=== PATIENT | male | born 1960 | race African-American/Black ===

== ENCOUNTER 2016-09-06 06:53 | Emergency (ER) | payer OTHER ==
[2016-09-06] MEDS ORDERED: SODIUM CHLORIDE 0.9% 1,000 ML IV STA (07:41)
[2016-09-06] MEDS ORDERED: KETOROLAC 30 MG/ML 1 ML VIAL IVP STA (07:41)
--- NOTE | 2016-09-06 07:43 | ED ---
General Adult HPI - General Chief complaint: Abdominal Pain Stated complaint: Abd Pain Time Seen by Provider: 09/06/16 07:32 Source: patient, RN notes reviewed Mode of arrival: ambulatory Limitations: no limitations - History of Present Illness Initial comments: Patient is a pleasant 55-year-old male presenting to the emergency department complaining of right flank pain. Onset of symptoms was yesterday morning. Fairly sudden onset. Discomfort is positional. Discomfort is below the right CVA region. No dysuria or hematuria. No fever. No nausea or vomiting. No history of similar symptoms previously. - Related Data Home Medications Medication Instructions Recorded Confirmed Acetaminophen Tab [Tylenol Tab] 1,000 mg PO Q6HR PRN 09/06/16 09/06/16 Multivitamins, Thera [Multivitamin 1 tab PO DAILY 09/06/16 09/06/16 (formulary)] Omeprazole Magnesium [Prilosec Otc] 20 mg PO DAILY 09/06/16 09/06/16 Previous Rx's Medication Instructions Recorded Hydrocodone/Acetaminophen [[place] 2 each PO Q6HR PRN #20 tab 09/06/16 5-325] Allergies Allergy/AdvReac Type Severity Reaction Status Date / Time No Known Allergies Allergy Verified 09/06/16 08:01 Review of Systems ROS Statement: Those systems with pertinent positive or pertinent negative responses have been documented in the HPI. ROS Other: All systems not noted in ROS Statement are negative. Constitutional: Denies: fever Eyes: Denies: eye pain ENT: Denies: ear pain Respiratory: Denies: dyspnea Cardiovascular: Denies: chest pain Endocrine: Denies: fatigue Gastrointestinal: Denies: abdominal pain Genitourinary: Denies: urgency, dysuria, frequency, hematuria, discharge Musculoskeletal: Denies: arthralgia Skin: Denies: rash Neurological: Denies: headache Past Medical History Past Medical History: GERD/Reflux History of Any Multi-Drug Resistant Organisms: None Reported Past Surgical History: Hernia Repair, Orthopedic Surgery Additional Past Surgical History / Comment(s): right knee Past Anesthesia/Blood Transfusion Reactions: No Reported Reaction Past Psychological History: No Psychological Hx Reported Smoking Status: Never smoker Past Alcohol Use History: None Reported Past Drug Use History: None Reported - Past Family History Mother Family Medical History: Cancer General Exam Limitations: no limitations General appearance: alert, in no apparent distress Head exam: Present: atraumatic Eye exam: Present: normal appearance ENT exam: Present: normal oropharynx Neck exam: Present: normal inspection Respiratory exam: Present: normal lung sounds bilaterally Cardiovascular Exam: Present: regular rate, normal rhythm Expanded Peripheral pulses: 2+: Dorsalis Pedis (R), Dorsalis Pedis (L) GI/Abdominal exam: Present: soft. Absent: distended, tenderness, guarding, rebound, rigid Extremities exam: Present: normal inspection. Absent: pedal edema, calf tenderness Back exam: Present: tenderness (Mild tenderness below the right CVA region) Neurological exam: Present: alert Psychiatric exam: Present: normal affect, normal mood Skin exam: Present: normal color Course Vital Signs 09/06/16 09/06/16 06:58 09:48 Temperature 98.2 F 97.9 F Pulse Rate 79 53 L Respiratory 16 18 Rate Blood Pressure 139/90 121/73 O2 Sat by Pulse 100 99 Oximetry Medical Decision Making - Medical Decision Making Patient reexamined and resting comfortably in bed. Patient states some improvement with Toradol however is receptive to further medication. Patient agrees not to drive. Patient is updated on results and need for follow-up. - Lab Data Result diagrams: 09/06/16 08:12 09/06/16 08:12 Lab Results 09/06/16 09/06/16 09/06/16 Range/Units 08:12 08:12 08:12 WBC 7.6 (3.8-10.6) k/uL RBC 5.06 (4.30-5.90) m/uL Hgb 14.5 (13.0-17.5) gm/dL Hct 45.5 (39.0-53.0) % MCV 89.9 (80.0-100.0) fL MCH 28.7 (25.0-35.0) pg MCHC 31.9 (31.0-37.0) g/dL RDW 14.0 (11.5-15.5) % Plt Count 196 (150-450) k/uL Neutrophils % 44 % Lymphocytes % 45 % Monocytes % 5 % Eosinophils % 4 % Basophils % 0 % Neutrophils # 3.4 (1.3-7.7) k/uL Lymphocytes # 3.5 (1.0-4.8) k/uL Monocytes # 0.3 (0-1.0) k/uL Eosinophils # 0.3 (0-0.7) k/uL Basophils # 0.0 (0-0.2) k/uL PT 10.1 (9.0-12.0) sec INR 1.0 (<1.1) APTT 26.8 (22.0-30.0) sec Sodium 143 (137-145) mmol/L Potassium 4.3 (3.5-5.1) mmol/L Chloride 109 H (98-107) mmol/L Carbon Dioxide 23 (22-30) mmol/L Anion Gap 11 mmol/L BUN 11 (9-20) mg/dL Creatinine 1.04 (0.66-1.25) mg/dL Est GFR (MDRD) Af Amer >60 (>60 ml/min/1.73 sqM) Est GFR (MDRD) Non-Af >60 (>60 ml/min/1.73 sqM) Glucose 104 H (74-99) mg/dL Calcium 9.6 (8.4-10.2) mg/dL Total Bilirubin 0.6 (0.2-1.3) mg/dL AST 28 (17-59) U/L ALT 39 (21-72) U/L Alkaline Phosphatase 59 (38-126) U/L Total Protein 8.0 (6.3-8.2) g/dL Albumin 4.7 (3.5-5.0) g/dL Amylase 101 (30-110) U/L Lipase 144 (23-300) U/L Urine Color Urine Appearance (Clear) Urine pH (5.0-8.0) Ur Specific [place] (1.001-1.035) Urine Protein (Negative) Urine Glucose (UA) (Negative) Urine Ketones (Negative) Urine Blood (Negative) Urine Nitrite (Negative) Urine Bilirubin (Negative) Urine Urobilinogen (<2.0) mg/dL Ur Leukocyte Esterase (Negative) Urine RBC (0-5) /hpf Urine WBC (0-5) /hpf Ur Squamous Epith Cells (0-4) /hpf Urine Bacteria (None) /hpf Urine Mucus (None) /hpf 09/06/16 Range/Units 09:04 WBC (3.8-10.6) k/uL RBC (4.30-5.90) m/uL Hgb (13.0-17.5) gm/dL Hct (39.0-53.0) % MCV (80.0-100.0) fL MCH (25.0-35.0) pg MCHC (31.0-37.0) g/dL RDW (11.5-15.5) % Plt Count (150-450) k/uL Neutrophils % % Lymphocytes % % Monocytes % % Eosinophils % % Basophils % % Neutrophils # (1.3-7.7) k/uL Lymphocytes # (1.0-4.8) k/uL Monocytes # (0-1.0) k/uL Eosinophils # (0-0.7) k/uL Basophils # (0-0.2) k/uL PT (9.0-12.0) sec INR (<1.1) APTT (22.0-30.0) sec Sodium (137-145) mmol/L Potassium (3.5-5.1) mmol/L Chloride (98-107) mmol/L Carbon Dioxide (22-30) mmol/L Anion Gap mmol/L BUN (9-20) mg/dL Creatinine (0.66-1.25) mg/dL Est GFR (MDRD) Af Amer (>60 ml/min/1.73 sqM) Est GFR (MDRD) Non-Af (>60 ml/min/1.73 sqM) Glucose (74-99) mg/dL Calcium (8.4-10.2) mg/dL Total Bilirubin (0.2-1.3) mg/dL AST (17-59) U/L ALT (21-72) U/L Alkaline Phosphatase (38-126) U/L Total Protein (6.3-8.2) g/dL Albumin (3.5-5.0) g/dL Amylase (30-110) U/L Lipase (23-300) U/L Urine Color Yellow Urine Appearance Clear (Clear) Urine pH 6.0 (5.0-8.0) Ur Specific [place] 1.012 (1.001-1.035) Urine Protein Negative (Negative) Urine Glucose (UA) Negative (Negative) Urine Ketones Negative (Negative) Urine Blood Negative (Negative) Urine Nitrite Negative (Negative) Urine Bilirubin Negative (Negative) Urine Urobilinogen <2.0 (<2.0) mg/dL Ur Leukocyte Esterase Trace H (Negative) Urine RBC 1 (0-5) /hpf Urine WBC 4 (0-5) /hpf Ur Squamous Epith Cells <1 (0-4) /hpf Urine Bacteria Rare H (None) /hpf Urine Mucus Rare H (None) /hpf - Radiology Data Radiology results: image reviewed (Computed tomography scan of the abdomen and pelvis show simple left renal cyst.) Disposition Clinical Impression: Back pain Disposition: HOME SELF-CARE Condition: Stable Instructions: Back Pain (ED) Additional Instructions: Please follow-up with your primary care physician beginning of the week. Return for increased pain, fever, worsening symptoms or other concerns. Prescriptions: Hydrocodone/Acetaminophen [[place] 5-325] 2 each PO Q6HR PRN #20 tab PRN Reason: Pain Referrals: Sen Serra MD [Primary Care Provider] - 1-2 days Time of Disposition: 10:02
[2016-09-06 08:30] LABS: Basophils % (A) 0 %; CH 29.1; CHCM 32.6; Eosinophils # (A) 0.3 k/uL (0-0.7); Eosinophils % (A) 4 %; HCT 45.5 % (39.0-53.0); HDW 2.39; HGB 14.5 gm/dL (13.0-17.5); Luc # (Auto) 0.14; Luc % (Auto) 2; Lymphocytes # (A) 3.5 k/uL (1.0-4.8); Lymphocytes % (A) 45 %; MCH 28.7 pg (25.0-35.0); MCHC 31.9 g/dL (31.0-37.0); MCV 89.9 fL (80.0-100.0); Mean Platelet Volume 6.8; Monocytes # (A) 0.3 k/uL (0-1.0); Monocytes % (A) 5 %; Neutrophils # (A) 3.4 k/uL (1.3-7.7); Neutrophils % (A) 44 %; RBC 5.06 m/uL (4.30-5.90); WBC 7.6 k/uL (3.8-10.6); WBC (Perox) 6.96
[2016-09-06 08:38] LABS: Partial Thromboplastin Time 26.8 sec (22.0-30.0); Prothrombin Time 10.1 sec (9.0-12.0)
[2016-09-06 08:39] LABS: ALT 39 U/L (21-72); AST 28 U/L (17-59); Alkaline Phosphatase 59 U/L (38-126); Amylase 101 U/L (30-110); Anion Gap 11 mmol/L; Blood Urea Nitrogen 11 mg/dL (9-20); Calcium 9.6 mg/dL (8.4-10.2); Carbon Dioxide 23 mmol/L (22-30); Chloride 109 mmol/L (98-107); Glucose 104 mg/dL (74-99); Non-African American GFR(MDRD) >60 (>60 ml/min/1.73 sqM); Potassium 4.3 mmol/L (3.5-5.1); Sodium 143 mmol/L (137-145); Total Bilirubin 0.6 mg/dL (0.2-1.3)
--- NOTE | 2016-09-06 09:21 | CT ---
EXAMINATION TYPE: CT abdomen pelvis wo con DATE OF EXAM: 09/06/2016 COMPARISON: 05/20/2009 INDICATION: Rt flank pain DLP: 813 mGycm, Automated exposure control for dose reduction was used. CONTRAST: 0 mL of Omnipaque 300. Study performed without Oral Contrast TECHNIQUE: Axial images were obtained from above the diaphragm to the pubic rami in the axial plane a t 5 mm thick sections. Reconstructed images are reviewed on the computer in the coronal plane. FINDINGS: Limited CT sections are obtained the lung bases. The lung bases are clear. CT ABDOMEN: Liver: Normal Spleen: Normal Pancreas: Normal Adrenal glands: The adrenal glands are normal. Gallbladder: Normal Kidneys: No masses are evident. No hydronephrosis is present. There is a 1.6 cm cyst on the posteri or mid left kidney measuring 4 Hounsfield units. A very low dense area could represent a small lipoma or angiomyolipoma estimated 0.7 cm and measuring -72 Hounsfield units. Series 3 image 28. Delayed i mages were obtained through the kidneys. The suspected lipoma is not identified on the delayed images . This cyst is better visualized. No hydronephrosis is evident. Aorta: Vascular calcification is within the aorta. Inferior vena cava: Normal. CT PELVIS: Loops of bowel within the abdomen and pelvis are normal. There are loops of bowel which are incom pletely distended or lack oral contrast limiting their evaluation. Appendix: Normal as visualized. Urinary bladder: Normal. Genitourinary structures: Prostate is prominent. Osseous structures: No suspicious lytic or sclerotic lesions. Scoliosis within the lumbar spine. Some sacroiliac joint degenerative changes are noted. Some narrowing of the hip joint spaces is also note d. IMPRESSIONS: 1. Simple left renal cyst.
[2016-09-06 09:24] LABS: Appearance,Urine Clear (Clear); Bacteria,Urine Rare /hpf; Bilirubin,Urine Negative (Negative); Glucose,Urine (UA) Negative (Negative); Ketones,Urine Negative (Negative); Leukocyte Esterase,Urine Trace (Negative); Mucus,Urine Rare /hpf; Nitrite,Urine Negative (Negative); Particle Count 1272; Protein,Urine Negative (Negative); RBC,Urine 1 /hpf (0-5); Specific Gravity,Urine 1.012 (1.001-1.035); Squamous Epithelial Cell,Urine <1 /hpf (0-4); UA Billing (MACRO vs. MICRO) MICRO; Urobilinogen,Urine <2.0 mg/dL (<2.0); WBC,Urine 4 /hpf (0-5)
[2016-09-06 09:49] VITALS: BP 121/73; PULSE 53; RESP 18; TEMP 97.9
[2016-09-06] MEDS ORDERED: MORPHINE SULFATE 4 MG/ML SYRINGE IV STA (09:59)
== END 2016-09-06 10:28 | disposition home or self-care (01) ==
LOC: EC 06:53
DX: M54.9 Dorsalgia, unspecified (principal); R10.9 Unspecified abdominal pain; K21.9 Gastro-esophageal reflux disease without esophagitis; Z79.899 Other long term (current) drug therapy
CPT/HCPCS: 36415; 80053; 82150; 83690; 85025; 85610; 85730; 81001; 74176; 99284; 96374; 96375; 96361 ×2; J2270; J1885

== ENCOUNTER 2017-06-07 06:39 | Day surgery (SDC) | payer OTHER ==
[2017-06-03 08:37] VITALS: BMI 26.4
[~2017-06-07 06:39] MED LIST: LACTATED RINGERS 1,000 ML IV SCH; LIDOCAINE 1% 20 ML VIAL (10MG/ML) FOR IV START INTRADERMA PRN
[2017-06-07] MEDS ORDERED: LACTATED RINGERS 1,000 ML IV ONE (06:59)
[2017-06-07 07:14] VITALS: TEMP 98.1
[2017-06-07] MEDS ORDERED: PROPOFOL 10 MG/ML 20 ML VIAL IV ONE (07:54)
[2017-06-07] MEDS ORDERED: LIDOCAINE 1% INJ 10MG/ML (20 ML MDV) ONE (07:54)
--- NOTE | 2017-06-07 07:57 | P.GSHP ---
History of Present Illness H&P Date: 06/07/17 Chief Complaint: GERD This a 56-year-old male referred from Dr. Mckeon. Patient presents today for EGD. He's had issues with GERD. Past Medical History Past Medical History: GERD/Reflux History of Any Multi-Drug Resistant Organisms: None Reported Past Surgical History: Hernia Repair, Orthopedic Surgery Additional Past Surgical History / Comment(s): right knee sx Past Anesthesia/Blood Transfusion Reactions: No Reported Reaction Smoking Status: Never smoker - Past Family History Mother Family Medical History: Cancer Medications and Allergies Home Medications Medication Instructions Recorded Confirmed Type Omeprazole Magnesium [Prilosec Otc] 20 mg PO DAILY 09/06/16 06/07/17 History Allergies Allergy/AdvReac Type Severity Reaction Status Date / Time No Known Allergies Allergy Verified 06/07/17 07:09 Surgical - Exam Vital Signs Temp Pulse Resp BP Pulse Ox 98.1 F 61 16 140/95 98 06/07/17 07:10 06/07/17 07:10 06/07/17 07:10 06/07/17 07:10 06/07/17 07:10 - General well developed, no distress - Eyes PERRL - ENT normal pinna - Neck no masses - Respiratory normal expansion - Cardiovascular Rhythm: regular - Abdomen Abdomen: soft, non tender Hernia: umbilical (Previous umbilical hernia with large firm mass questionable recurrent hernia) Assessment and Plan Assessment: GERD. We'll perform EGD.
--- NOTE | 2017-06-07 08:07 | P.OP ---
Date of Procedure: 06/07/17 Preoperative Diagnosis: GERD Postoperative Diagnosis: Antral gastritis Moderate size sliding hiatal hernia Esophagitis Anesthesia: MAC Surgeon: Raheel Mcmahan Pathology: other (Antrum, esophagus) Condition: stable Disposition: PACU Description of Procedure: The patient's placed on the endoscopy table in the lateral position. He received IV sedation. The gastroscope placed oropharynx and passed into the esophagus and into the stomach. Scope was then placed through the pylorus. The first and second portion of the duodenum appeared normal. Scope was then brought back the antrum this was mildly inflamed. A biopsies performed. Scope was then retroflexed. The remainder stomach appeared normal. There was a moderate size sliding hiatal hernia. The GE junction was at 38 cm. The distal esophagus appeared inflamed and a biopsies performed. The proximal esophagus appeared normal. Scope was withdrawn for patient.
[2017-06-07] MEDS ORDERED: IV FLUID CONTINUATION 1,000 ML IV ONE (08:13)
[2017-06-07 08:14] VITALS: RESP 18
[2017-06-07 08:36] VITALS: BP 125/88; PULSE 61
== END 2017-06-07 08:43 | disposition home or self-care (01) ==
LOC: ORWHC2ENDO 06:39
PROVIDERS: ATTEND Surgery
DX: K21.0 Gastro-esophageal reflux disease with esophagitis (principal); K29.60 Other gastritis without bleeding; K44.9 Diaphragmatic hernia without obstruction or gangrene; Z79.899 Other long term (current) drug therapy
CPT/HCPCS: 88305; 43239; J2001; J2704; 45380

== ENCOUNTER → 2017-06-16 | Outpatient (CLI) | payer OTHER ==
[2017-06-16 15:24] LABS: Basophils % (A) 0 %; Eosinophils # (A) 0.2 k/uL (0-0.7); Eosinophils % (A) 4 %; HCT 43.4 % (39.0-53.0); HGB 13.6 gm/dL (13.0-17.5); Lymphocytes # (A) 2.4 k/uL (1.0-4.8); Lymphocytes % (A) 38 %; MCH 27.6 pg (25.0-35.0); MCHC 31.4 g/dL (31.0-37.0); MCV 88.1 fL (80.0-100.0); Mean Platelet Volume 7.6; Monocytes # (A) 0.4 k/uL (0-1.0); Monocytes % (A) 7 %; Neutrophils # (A) 3.1 k/uL (1.3-7.7); Neutrophils % (A) 49 %; Platelet Count 201 k/uL (150-450); RBC 4.92 m/uL (4.30-5.90); RDW 13.6 % (11.5-15.5); WBC 6.3 k/uL (3.8-10.6)
== END | disposition home or self-care (01) ==
LOC: LABWHC1 14:58
PROVIDERS: ATTEND Surgery
DX: Z01.818 Encounter for other preprocedural examination (principal); D64.9 Anemia, unspecified; F17.200 Nicotine dependence, unspecified, uncomplicated; K21.9 Gastro-esophageal reflux disease without esophagitis; R94.31 Abnormal electrocardiogram [ECG] [EKG]; I51.7 Cardiomegaly; Z01.812 Encounter for preprocedural laboratory examination
CPT/HCPCS: 36415; 85025; 93005

== ENCOUNTER 2017-06-23 06:52 | Observation (INO) | payer OTHER ==
[2017-06-16 09:24] VITALS: BMI 26.4
[~2017-06-23 06:52] MED LIST changes: +DEXAMETHASONE SOD PHOSPHATE 10 MG/ML 1 ML VIAL IV ONE; +HEPARIN SODIUM,PORCINE 5,000 UNIT/ML 1 ML VIAL SQ ONE; +HYDROmorphone 0.5 MG/0.5 ML SYRINGE IVP PRN; -LACTATED RINGERS 1,000 ML IV SCH; +MIDAZOLAM 2 MG/2 ML VIAL IV PRN; +MORPHINE SULFATE 2 MG/ML SYRINGE IV PRN; +SCOPOLAMINE 1.5MG/72HR PATCH TRANSDERM ONE; +ceFAZolin IN SWFI 2 GM/20 ML SYRINGE IVP ONE; +fentaNYL (PF) 50 MCG/ML 2 ML AMP IV PRN
[2017-06-23] MEDS: LACTATED RINGERS 1,000 ML IV SCH (07:11)
[2017-06-23] MEDS: ONDANSETRON 4 MG/2 ML VIAL IVP ONE ×2 (07:16→09:37)
--- NOTE | 2017-06-23 07:57 | P.GSHP ---
History of Present Illness H&P Date: 06/23/17 Chief Complaint: GERD This is a 56-year-old male referred from Dr. Jaeger.The patient has had long- standing problems with reflux esophagitis. The patient underwent recent EGD is found have evidence of esophagitis. Patient has been well informed on the procedure of laparoscopic Tresa fundoplication. The patient is aware the risk of the conversion to the open procedure, risk of injury to the stomach, liver and spleen. The patient is also a risk of recurrent GERD and dysphagia symptoms. The patient understands there is a postoperative diet of full liquids for 2 weeks after surgery. Past Medical History Past Medical History: GERD/Reflux Additional Past Medical History / Comment(s): hiatal hernia, History of Any Multi-Drug Resistant Organisms: None Reported Past Surgical History: Hernia Repair, Orthopedic Surgery Additional Past Surgical History / Comment(s): right knee surgery, EGD, colonoscopy Past Anesthesia/Blood Transfusion Reactions: No Reported Reaction Smoking Status: Never smoker - Past Family History Mother Family Medical History: Cancer Medications and Allergies Home Medications Medication Instructions Recorded Confirmed Type Omeprazole Magnesium [Prilosec Otc] 20 mg PO DAILY 09/06/16 06/23/17 History Allergies Allergy/AdvReac Type Severity Reaction Status Date / Time No Known Allergies Allergy Verified 06/23/17 07:09 Surgical - Exam Vital Signs Temp Pulse Resp BP Pulse Ox 97.8 F 59 L 16 128/86 97 06/23/17 07:09 06/23/17 07:09 06/23/17 07:09 06/23/17 07:09 06/23/17 07:09 - General well developed, no distress - Eyes PERRL - ENT normal pinna - Neck no masses - Respiratory normal expansion - Cardiovascular Rhythm: regular - Abdomen Abdomen: soft, non tender Assessment and Plan Assessment: GERD. We'll perform laparoscopic Tresa fundoplication.
[2017-06-23] MEDS ORDERED: SUCCINYLCHOLINE CHLORIDE 100 MG/5 ML SYR IV ONE (08:00)
[2017-06-23] MEDS ORDERED: NEOSTIGMINE 1 MG/ML 10 ML VIAL ONE (08:00)
[2017-06-23] MEDS ORDERED: fentaNYL (PF) 50 MCG/ML 2 ML AMP ONE (08:00)
[2017-06-23] MEDS ORDERED: ePHEDrine SULFATE/0.9% NACL/PF 50 MG/5 ML SYRINGE IV ONE (08:00)
[2017-06-23] MEDS ORDERED: ROCURONIUM BROMIDE 10 MG/ML 10 ML VIAL IV ONE (08:00)
[2017-06-23] MEDS ORDERED: PROPOFOL 10 MG/ML 20 ML VIAL IV ONE (08:00)
[2017-06-23] MEDS ORDERED: GLYCOPYRROLATE 0.2 MG/ML 2 ML VIAL ONE (08:00)
[2017-06-23] MEDS ORDERED: LIDOCAINE 1% INJ 10MG/ML (20 ML MDV) ONE (08:00)
[2017-06-23] MEDS ORDERED: MIDAZOLAM 2 MG/2 ML VIAL ONE (08:00)
[2017-06-23] MEDS ORDERED: KETOROLAC 30 MG/ML 1 ML VIAL ONE (08:00)
[2017-06-23] MEDS ORDERED: BUPIVACAINE (PF) 0.25% 30 ML VIAL SQ ONE (08:18)
[2017-06-23] MEDS ORDERED: LACTATED RINGERS 1,000 ML IV ONE (08:37)
[2017-06-23] MEDS ORDERED: ONDANSETRON 4 MG/2 ML VIAL IVP PRN (09:11)
--- NOTE | 2017-06-23 09:24 | P.OP ---
Date of Procedure: 06/23/17 Preoperative Diagnosis: GERD Postoperative Diagnosis: GERD Procedure(s) Performed: Laparoscopic Tresa fundoplication Anesthesia: SHARRON Surgeon: Raheel Mcmahan Pathology: none sent Condition: stable Disposition: PACU Description of Procedure: The patient was placed on the operating table in the supine position. The patient received general anesthesia. And was placed in dorsal lithotomy position. The patient was prepped and draped in the usual sterile fashion. The skin incision sites were anesthetized with 1% local Xylocaine. The skin was incised in the left periumbilical area and then using a blade less 5 mm trocar under direct visualization panel cavity was entered. After adequate insufflation the laparoscope was then placed into the peritoneal cavity. Next a 5 mm trochars placed in the right epigastric position. Another 5 millimeter trocar the right lateral position. Another 5 millimeter trocar in the left lateral position a 5 mm trocar is placed in the left epigastric position. And then the initial 5 mm trocar was exchanged for a 10 mm trocar. The left lateral lobe liver was retracted. The hernia was seen. The crural defect was then dissected using the Harmonic scissors device. A 360 crural dissection was performed the esophagus stomach was reduced back into the peritoneal Cavity. The crural defect was then closed using 2-0 Ethibond suture. Next the fundus of the stomach was mobilized using the [place] scissors device. and then a 58-Indonesian bougie dilator was placed oropharynx passed into the esophagus and stomach the fundal plication wrap was then performed by grasping the fundus posteriorly and bringing it around the esophagus and stomach fundoplication was then performed using 2-0 Ethibond suture. Care was taken that the fundal location rested over top of the intra-abdominal esophagus. There was no injury seen to the stomach or esophagus. The dilator was then withdrawn. The abdomen was irrigated there is no bleeding seen. The trochars were then withdrawn and then skin incision sites were closed using 3-0 Monocryl suture Steri-Strips are applied. Patient thought procedure well and sent to recovery room in stable condition.
[2017-06-23] MEDS ORDERED: diphenhydrAMINE 50 MG/ML 1 ML VIAL IVP ONE (09:41)
[2017-06-23] MEDS ORDERED: PROMETHAZINE INJ 25 MG/ML 1 ML VIAL IVPB ONE (09:49)
[2017-06-23] MEDS: MORPHINE SULFATE/PF 10MG/10ML VL IVP PRN ×3 (10:36→18:46)
[2017-06-23] MEDS: D5-0.45% NACL WITH KCL 20MEQ/L 1,000 ML IV SCH ×2 (13:06→20:26)
[2017-06-23] MEDS: LISINOPRIL-HCTZ 10-12.5 MG 1 EACH TAB PO SCH (13:07)
--- NOTE | 2017-06-23 13:09 | CONS ---
CONSULTATION DATE OF CONSULTATION: 06/23/2017 REASON FOR CONSULTATION: Medical management requested by Dr. Mcmahan. CONSULTATION: This is a pleasant 56-year-old patient of Dr. Flores who has undergone Tresa fundoplication surgery. Patient for quite a while has been having reflux symptoms, gets better with medication, gets worse if he stops taking it, does not interfere with his work. More so when he lays down, he stays. Finally decided to proceed with surgery. He was having some epigastric discomfort at times, too. Something would make it worse. Post procedure, patient is having some pain at the operative site. Tired. at the bedside. Blood pressure is running a bit high, never had high blood pressure before. Patient is also having a workup of obstructive sleep apnea, due to go for study. Patient snores a lot at night and wakes up suddenly, according to the . REVIEW OF SYSTEMS: CONSTITUTIONAL: Tired. HEENT: None. RESPIRATORY: None. CARDIOVASCULAR: None. GASTROINTESTINAL: As above. GENITOURINARY: None. MUSCULOSKELETAL: None. DERMATOLOGICAL: None. HEMATOLOGIC: None. LYMPHATIC: None. PSYCHIATRY: None. NEUROLOGICAL: Snoring. PAST MEDICAL HISTORY: GERD, hiatal hernia, snoring workup in place with obstructive sleep apnea. PAST SURGICAL HISTORY: Right knee surgery, EGD, colonoscopy. SOCIAL HISTORY: No smoking. Does marijuana twice a day. 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 . FAMILY HISTORY: Cancer, type unknown. HOME MEDICATIONS: Prilosec 20 mg a day. ALLERGIES: None. PHYSICAL EXAMINATION: Temperature 98.2 pulse 65, respiratory rate is 16, blood pressure 152/87, pulse ox 94% on room air. GENERAL APPEARANCE: Average build, lying in bed, tired appearing. EYES: Pupils equal, conjunctivae normal. HEENT: External appearance of nose and ears normal. NECK: JVD not raised. Mass not palpable. Respiratory effort normal. Lungs are clear. CARDIOVASCULAR: First and second sounds normal. No edema. ABDOMEN: Upper abdomen tenderness. No guarding or rigidity. Liver and spleen not palpable. Bowel sounds are present. LYMPHATIC: No lymph nodes palpable in neck or axillae. PSYCHIATRY: Alert and oriented x3. Mood and affect normal. NEUROLOGICAL: Pupils equal. Cranial nerves grossly intact. Power and sensation grossly intact. INVESTIGATIONS: Blood work from 06/16/2017 shows a white count of 6.3, hemoglobin 13.6. ASSESSMENT: 1. Status post Tresa fundoplication for gastroesophageal reflux disease. 2. Chronic gastroesophageal reflux disease. 3. Chronic hiatal hernia. 4. Essential hypertension, new diagnosis. PLAN: Patient is to continue on PPIs. We will start the patient on lisinopril and hydrochlorothiazide. Care was discussed with the patient and . Patient is to follow up with the doctor to keep his appointment for sleep apnea. Pain management per Dr. Mcmahan. Thank you Dr. Mcmahan. MMODL / JACINDAN: [id number] /
--- NOTE | 2017-06-23 14:19 | FL ---
SINGLE CONTRAST esophagram: HISTORY: 56-year-old male status post Tresa fundoplication, rule out leak/obstruction TECHNIQUE: Single contrast exam performed with 50 ml Omnipaque 350 contrast. Total fluoroscopy time: 26 seconds. Total images: 24. FINDINGS: The patient swallowed oral contrast without difficulty or delay. Esophageal peristalsis and motility are within normal limits. Postsurgical changes of Tresa fundoplication are demonstrated. There is g ood flow of contrast along the course of the surgical site and accumulation in the stomach. There is no evidence of contrast extravasation to suggest leak. Trace post surgical free air seen below the ri ght hemidiaphragm. IMPRESSION: 1. No evidence of leak or significant obstruction status post Tresa fundoplication. 2. Trace postsurgical free air seen on the right.
[2017-06-23] MEDS: FAMOTIDINE 20 MG/2 ML VIAL IV SCH (20:27)
[2017-06-24] MEDS: MORPHINE SULFATE/PF 10MG/10ML VL IVP PRN (01:33)
[2017-06-24] MEDS: D5-0.45% NACL WITH KCL 20MEQ/L 1,000 ML IV SCH ×2 (04:31→08:50)
[2017-06-24] MEDS: LACTATED RINGERS 1,000 ML IV SCH (06:33)
[2017-06-24 08:47] VITALS: BP 154/99; PULSE 70; RESP 17; TEMP 98.8
[2017-06-24] MEDS: FAMOTIDINE 20 MG/2 ML VIAL IV SCH (08:51)
[2017-06-24] MEDS: LISINOPRIL-HCTZ 10-12.5 MG 1 EACH TAB PO SCH (08:51)
--- NOTE | 2017-06-24 08:51 | P.DS ---
Providers Date of admission: 06/23/17 18:59 Expected date of discharge: 06/24/17 Attending physician: Raheel Mcmahan Consults: 06/23/17 09:11 Consult Physician Routine Consulting Provider: Joey Aguirre Consult Reason/Comments: Medical management Do you want consulting provider notified?: Yes Primary care physician: Sen Serra [facility] Course: 56-year-old male presented on an elective admission to undergo a procedure laparoscopic Tresa fundoplication for symptomatic esophageal reflux. Done on June 23. Patient was tolerating a full liquid diet. Surgical dressing sites dry. Esophagram with no evidence of a leak or significant obstruction Patient' s blood pressure was noted to be slightly elevated this can be worked up in the outpatient setting by his family doctor this was discussed with the patient. Additionally patient reportedly is being worked up for obstructive sleep apnea sleep study can be arranged with his primary doctor as well. Patient was felt to be stable and appropriate proceed with a discharge to home Impression discharge diagnosis Essential hypertension new diagnosis June 23 laparoscopic Tresa fundoplication for symptomatic esophageal reflux symptoms Chronic hiatal hernia Chronic gastroesophageal reflux Recent EGD showing evidence of esophagitis The above impression and plan of care have been discussed and directed by signing physician. Lexie Thomas nurse practitioner acting as scribe for signing physician. Plan - Discharge Summary Discharge Rx Participant: Yes New Discharge Prescriptions: New Lisinopril-Hctz 10-12.5 mg [Zestoretic 10-12.5] 1 each PO DAILY #30 tab HYDROcodone/APAP 5-325MG [[place] 5-325] 1 tab PO Q4HR PRN #15 tab PRN Reason: Mild To Moderate Pain No Action Omeprazole Magnesium [Prilosec Otc] 20 mg PO DAILY Discharge Medication List Omeprazole Magnesium [Prilosec Otc] 20 mg PO DAILY 09/06/16 [History] HYDROcodone/APAP 5-325MG [[place] 5-325] 1 tab PO Q4HR PRN #15 tab 06/24/17 [Rx] Lisinopril-Hctz 10-12.5 mg [Zestoretic 10-12.5] 1 each PO DAILY #30 tab [Rx] Follow up Appointment(s)/Referral(s): Raheel Mcmahan MD [STAFF PHYSICIAN] - 1 Week Sen Serra MD [Primary Care Provider] - 06/27/17 Activity/Diet/Wound Care/Special Instructions: No tub bath for six weeks. Shower daily. No lifting over 10 pounds for the next 6 weeks. Postsurgical procedure liquid diet for 2 weeks Follow-up with Dr serra. Within the week for further recommendations for hypertension May use ice packs to surgical site. No driving while taking narcotic for pain. Discharge Disposition: HOME SELF-CARE
[2017-06-24] MEDS ORDERED: HYDROcodone/APAP 5-325MG 1 EACH TAB PO PRN (08:57)
[2017-06-24] MEDS ORDERED: ENOXAPARIN 40 MG/0.4 ML SYRINGE SQ SCH (09:00)
--- NOTE | 2017-06-24 19:16 | PN ---
PROGRESS NOTE DATE OF SERVICE: 06/24/2017 PRESENTING COMPLAINT: Abdominal surgery. INTERVAL HISTORY: Patient is status post Tresa fundoplication, is doing much better today, up and about in the hallway. No nausea, vomiting, did tolerate a clear liquid diet. Slight pain is present. REVIEW OF SYSTEMS: Done for constitutional, cardiovascular, GI, pulmonary; relevant findings as above. CURRENT MEDICATIONS: Reviewed that include Zestoretic. EXAMINATION: Temperature 98.8, pulse 70, respirations 17, blood pressure 124/99, pulse ox 96% on room air. GENERAL APPEARANCE: Sitting up, comfortable. EYES: Pupils normal. Conjunctivae normal. HEENT: External nose and ears normal. Oral cavity normal. NECK: JVD not raised. Mass not palpable. RESPIRATORY: Effort normal. Lungs are clear. CARDIOVASCULAR: First and second sounds normal. No edema. ABDOMEN: Minimal tenderness, soft. Liver, spleen not palpable. PSYCHIATRY: Alert and oriented x3. Mood and affect were normal. INVESTIGATIONS: No blood work. ASSESSMENT: 1. Status post Tresa fundoplication. 2. Chronic gastroesophageal reflux disease. 3. Chronic hiatal hernia, repair as above. 4. Essential hypertension. PLAN: Patient is told to take his medications and continue his PPI. Should follow up with his family doctor upon discharge. Thank you, Dr. Mcmahan. HEIKEL / JACINDAN: [id number] /
== END 2017-06-24 11:15 | disposition home or self-care (01) ==
LOC: OR 06:52 → 3SUR 09:06 → OR 19:02
PROVIDERS: ADMIT Surgery; ATTEND Surgery
DX: K21.0 Gastro-esophageal reflux disease with esophagitis (principal); K44.9 Diaphragmatic hernia without obstruction or gangrene; I10 Essential (primary) hypertension; R06.83 Snoring; Z79.899 Other long term (current) drug therapy; Z80.9 Family history of malignant neoplasm, unspecified
CPT/HCPCS: 86900; 86901; 86850; 74210; 43281; G0378 ×2; J2250; J1200; J1644; J1100; J2550; J2710; Q9967; J2405; J2001; J1650; J3010; J1885; J0330; J2704; J0690; J2270 ×2

== ENCOUNTER 2017-10-12 10:17 | Emergency (ER) | payer OTHER ==
--- NOTE | 2017-10-12 11:29 | ED ---
Lower Extremity Injury HPI - General Chief Complaint: Extremity Injury, Lower Stated Complaint: Poss DVT sent by [facility] Time Seen by Provider: 10/12/17 10:43 Source: patient, RN notes reviewed, old records reviewed Mode of arrival: wheelchair Limitations: physical limitation - History of Present Illness Initial Comments: 56-year-old male persist presentation with right leg swelling. He reports that on September 28 he sprained his ankle. He states since that time he's been working and standing on it. He states that he has been having pain and worsening swelling. He denies any peripheral paresthesias. Pain is mainly on ankle and he reports severe swelling of the foot. No history of blood clots. Was sent in by [employer] wrist or ultrasound for concern for DVT. - Related Data Previous Rx's Medication Instructions Recorded Ibuprofen [Motrin] 600 mg PO Q6HR PRN #20 tab 10/12/17 Allergies Allergy/AdvReac Type Severity Reaction Status Date / Time No Known Allergies Allergy Verified 10/12/17 11:06 Review of Systems ROS Statement: Those systems with pertinent positive or pertinent negative responses have been documented in the HPI. ROS Other: All systems not noted in ROS Statement are negative. Past Medical History Past Medical History: GERD/Reflux Additional Past Medical History / Comment(s): hiatal hernia, History of Any Multi-Drug Resistant Organisms: None Reported Past Surgical History: Hernia Repair, Orthopedic Surgery Additional Past Surgical History / Comment(s): right knee surgery, EGD, colonoscopy Past Anesthesia/Blood Transfusion Reactions: No Reported Reaction Past Psychological History: No Psychological Hx Reported Smoking Status: Never smoker Past Alcohol Use History: None Reported Past Drug Use History: Marijuana - Past Family History Mother Family Medical History: Cancer General Exam - General Exam Comments Initial Comments: 56-year-old male. Alert and oriented. No significant distress. Limitations: physical limitation General appearance: alert, in no apparent distress Head exam: Present: atraumatic, normocephalic, normal inspection Eye exam: Present: normal appearance, PERRL, EOMI. Absent: scleral icterus, conjunctival injection, periorbital swelling ENT exam: Present: normal exam, mucous membranes moist Neck exam: Present: normal inspection. Absent: tenderness, meningismus, lymphadenopathy Respiratory exam: Present: normal lung sounds bilaterally. Absent: respiratory distress, wheezes, rales, rhonchi, stridor Cardiovascular Exam: Present: regular rate, normal rhythm, normal heart sounds. Absent: systolic murmur, diastolic murmur, rubs, gallop, clicks GI/Abdominal exam: Present: soft, normal bowel sounds. Absent: distended, tenderness, guarding, rebound, rigid Extremities exam: Present: full ROM, normal capillary refill. Absent: normal inspection, tenderness, pedal edema, joint swelling, calf tenderness Right Lower Leg exam: Present: normal inspection, full ROM Ankle exam: Present: tenderness (Patient has significant swelling and tenderness over the lateral and medial malleolus. Swelling extends to the dorsum of the foot.), swelling. Absent: normal inspection Foot/Toe exam: Present: tenderness, swelling. Absent: normal inspection Neurovascular tendon exam: Present: no vascular compromise Gait: observed and limited by pain Course Vital Signs 10/12/17 10:41 Temperature 98.7 F Pulse Rate 58 L Respiratory 16 Rate Blood Pressure 145/97 O2 Sat by Pulse 99 Oximetry Medical Decision Making - Medical Decision Making This patient's 56-year-old male with 2 weeks of increased pain and swelling over the left foot and ankle. He was sent [facility] for an ultrasound. Today he has normal pulses and sensation in the foot. He does have significant swelling in the foot and lateral and medial malleolus. X-rays were obtained and showed no evidence of acute fractures in the foot or ankle. Ultrasound was completed and is negative for DVT. However he does have quite extensive swelling. Concern for a very severe sprain. I will write the Patient for repeat ultrasound in 2 days. The Patient denies amphetamines or medicine given a walking boot and crutches. Discussed discussed following up with orthopedic and primary care physician. - Radiology Data Radiology results: report reviewed Leg is negative for DVT. No fracture dislocation evident. No acute fracture dislocation seen in the right ankle. Soft tissue swelling of the medial lateral malleolus noted. Disposition Clinical Impression: Right ankle swelling, Ankle sprain Disposition: HOME SELF-CARE Condition: Good Instructions: Ankle Sprain (ED) Additional Instructions: Rest, ice, and elevate extremity. Repeat ultrasound in 2 days and follow-up with primary care physician. Also follow-up with orthopedic. Ambulate with crutches and use the walking boot. Prescriptions: Ibuprofen [Motrin] 600 mg PO Q6HR PRN #20 tab PRN Reason: Pain Is patient prescribed a controlled substance at d/c from ED?: No When asked, does pt state using other controlled substances?: No If prescribed controlled substance>3 days was MAPS reviewed?: No If opioid is for acute pain is fill amount 7 days or less?: No If Rx opioid, was Start Talking consent form obtained?: No Referrals: Sen Serra MD [Primary Care Provider] - 1-2 days Efrain Lea MD [STAFF PHYSICIAN] - 1-2 days Time of Disposition: 13:06
--- NOTE | 2017-10-12 12:26 | US ---
EXAMINATION TYPE: US venous doppler duplex LE RT DATE OF EXAM: 10/12/2017 12:09 PM COMPARISON: NONE CLINICAL HISTORY: Pain. Right ankle and foot swelling x 2 weeks following ankle sprain. SIDE PERFORMED: Right TECHNIQUE: The lower extremity deep venous system is examined utilizing real time linear array sonog umberto with graded compression, doppler sonography and color-flow sonography. VESSELS IMAGED: External Iliac Vein (EIV) Common Femoral Vein Deep Femoral Vein Greater Saphenous Vein * Femoral Vein Popliteal Vein Small Saphenous Vein * Proximal Calf Veins (* superficial vessels) Right Leg: Appears negative for DVT IMPRESSION: No evidence for DVT.
--- NOTE | 2017-10-12 12:27 | XR ---
EXAMINATION TYPE: XR foot complete RT DATE OF EXAM: 10/12/2017 CLINICAL HISTORY: pain TECHNIQUE: Frontal, lateral and oblique images of the right foot are obtained. COMPARISON: None. FINDINGS: There is no acute fracture/dislocation evident. The joint spaces appear within normal coleman its. Hallux valgus deformity great toe. The overlying soft tissue appears unremarkable. IMPRESSION: There is no acute fracture or dislocation. ICD 10 NO FRACTURE, INITIAL EVALUATION
--- NOTE | 2017-10-12 12:30 | XR ---
EXAMINATION TYPE: XR ankle limited RT DATE OF EXAM: 10/12/2017 COMPARISON: NONE HISTORY: Pain TECHNIQUE: Frontal, lateral and oblique images of the right ankle are obtained. COMPARISON: None. FINDINGS: There is no acute fracture/dislocation evident. The joint spaces appear within normal coleman its. Soft tissue swelling noted about the medial and lateral malleolar regions. IMPRESSION: There is no acute fracture or dislocation seen.
[2017-10-12 13:49] VITALS: BP 134/85; PULSE 54; RESP 18; TEMP 98
== END 2017-10-12 13:48 | disposition home or self-care (01) ==
LOC: EC 10:17
DX: S93.401A Sprain of unspecified ligament of right ankle, initial encounter (principal); Z98.890 Other specified postprocedural states
CPT/HCPCS: 99284

== ENCOUNTER → 2017-11-04 | Outpatient (CLI) | payer OTHER ==
--- NOTE | 2017-11-07 16:04 | MR ---
EXAMINATION TYPE: MR ankle RT wo con DATE OF EXAM: 11/04/2017 COMPARISON: Right ankle radiograph dated 10/12/2017 HISTORY: Right ankle pain for after twisting injury TECHNIQUE: Multiplanar, multisequence images of the right ankle were acquired without intravenous con trast. FINDINGS: There is abnormal bone marrow within the anterior facet of the calcaneus, cuboid bone, middle facet o f the talus at its lateral margin and to a lesser degree within the inferior aspect of the lateral cu neiform. There is a nondisplaced fracture occult on radiographs of the inferior posterior cuboid at t he articulation with the calcaneus. Slight bone marrow edema is also seen within the distal fibula wi thout linear fracture line. Remaining bone marrow signal is within normal limits. The anterior compartment is unremarkable. The posterior tibialis and flexor digitorum longus are unre markable in signal and morphology. There is thickening and abnormal signal of the peroneus brevis and longus as they course lateral to the fracture site with surrounding soft tissue swelling. There is a small tibiotalar joint effusion. Achilles tendon appears intact, however there is fat stra nding in the pretracheal is fat pad and increased signal of the soleus distal muscular body likely re lated to low-grade muscular strain. A small amount of fluid is present surrounding the flexor digitor um longus related to tenosynovitis. No discontinuity is seen. The Lisfranc ligament is intact. There is high signal intensity in the region of the spring ligament suggestive of low-grade injury without tear. The anterior talofibular ligament and posterior talofibular ligament are intact although there is inc reased signal in the anterior talofibular ligament compatible with low-grade sprain. The deltoid liga ment is intact and unremarkable. Very mild osseous irregularity at the talonavicular joint is indicat gomez of mild arthropathy. IMPRESSION: 1. Radiographically occult nondisplaced and noncomminuted inferior posterior cuboid fracture with bon e marrow edema relating to osseous contusions of the cuboid, anterior facet of the calcaneus, middle facet of the talus, and lateral margin of the inferior lateral cuneiform. 2. Mild osseous contusion of the distal aspect of the fibula without fracture. 3. Moderate grade posttraumatic tendinopathy of the peroneus brevis and longus as it courses lateral to the fracture site. Overlying subcutaneous soft tissue swelling is also seen. 4. Small tibiotalar joint effusion. Pre-Achilles fat pad edema and distal soleus myositis. 5. Abnormal signal without tear of the anterior talofibular ligament and spring ligament compatible w ith low-grade sprain. 6. Mild flexor digitorum longus tenosynovitis.
== END ==
LOC: RADMRIMAIN 19:36
PROVIDERS: ATTEND Orthopaedic Surgery
DX: S92.214A Nondisplaced fracture of cuboid bone of right foot, initial encounter for closed fracture (principal); S90.01XA Contusion of right ankle, initial encounter; M25.471 Effusion, right ankle; M60.9 Myositis, unspecified; M65.871 Other synovitis and tenosynovitis, right ankle and foot

== ENCOUNTER 2019-10-04 18:52 | Emergency (ER) | payer BC, OTHER ==
[2019-10-04] MEDS ORDERED: ACETAMINOPHEN TAB 325 MG TAB PO STA (20:25)
--- NOTE | 2019-10-04 20:44 | CT ---
EXAMINATION TYPE: CT brain cspine wo con DATE OF EXAM: 10/04/2019 COMPARISON: NONE HISTORY: Head laceration and headache with neck pain from injury. CT DLP: 1416.5 mGycm. Automated Exposure Control for Dose Reduction was Utilized. TECHNIQUE: CT scan of the head and cervical spine are performed without contrast. FINDINGS: There is no acute intracranial hemorrhage or midline shift identified. The ventricles an d sulci are within normal limits in size for patient's age. The calvarium is intact. The globes are i ntact and the visualized sinuses are clear. Cervical spine is visualized in its entirety from C1 through upper thoracic levels and demonstrates l evoconvex scoliosis centered upper to mid thoracic spine without evidence of acute fracture or disloc ation. Prevertebral soft tissue appears within normal limits. The C1-C2 articulation is satisfactor y on the coronal images. Vertebral body heights are maintained. Mild to moderate disc space narrowin g C5-C6 and C6-C7 levels with moderate anterior spurring. [id number] disc space narrowing and s purring C7-T1 level. Posterior spurring effaces the anterior thecal sac C5-C6 level. Axial images isis w multilevel uncovertebral facet degenerative changes contributing to multilevel neural foraminal jonathan rowing. Lung apices show no pneumothorax. IMPRESSION: 1. There is no acute fracture or dislocation evident in the cervical spine. 2. No acute intracranial hemorrhage or midline shift is seen.
--- NOTE | 2019-10-04 20:49 | ED ---
Head Injury HPI - General Chief complaint: Head Injury Stated complaint: Head laceration Time Seen by Provider: 10/04/19 18:55 Source: patient Mode of arrival: ambulatory Limitations: no limitations - History of Present Illness Initial comments: Patient is a 58-year-old male was playing in the garage at home with his grandson when he stated that a hammer hit him on the top of his head. He sustained a laceration which was bleeding but bleeding is controlled. The patient does not take any blood thinners. He denies loss of consciousness. Denies having a headache or visual changes. No nausea or vomiting. Denies any neck pain. Patient denies any additional injuries. No other alleviating, precipitating or modifying factors - Related Data Previous Rx's Medication Instructions Recorded Ibuprofen [Motrin] 600 mg PO Q6HR PRN #20 tab 10/12/17 Allergies/Adverse reactions: Allergies Allergy/AdvReac Type Severity Reaction Status Date / Time No Known Allergies Allergy Verified 10/04/19 18:58 Review of Systems ROS Statement: Those systems with pertinent positive or pertinent negative responses have been documented in the HPI. ROS Other: All systems not noted in ROS Statement are negative. Past Medical History Past Medical History: GERD/Reflux Additional Past Medical History / Comment(s): hiatal hernia, History of Any Multi-Drug Resistant Organisms: None Reported Past Surgical History: Hernia Repair, Orthopedic Surgery Additional Past Surgical History / Comment(s): right knee surgery, EGD, colonoscopy Past Anesthesia/Blood Transfusion Reactions: No Reported Reaction Past Psychological History: No Psychological Hx Reported Smoking Status: Never smoker Past Alcohol Use History: None Reported Past Drug Use History: Marijuana - Past Family History Mother Family Medical History: Cancer General Exam Limitations: no limitations General appearance: alert, in no apparent distress Head exam: Present: normocephalic, other (laceration 2.5 cm occiput. Bleeding controlled. No deep structure involvement.) Eye exam: Present: normal appearance, PERRL, EOMI. Absent: scleral icterus, conjunctival injection, periorbital swelling ENT exam: Present: normal exam, mucous membranes moist Neck exam: Present: normal inspection. Absent: tenderness, meningismus, lymphadenopathy Respiratory exam: Present: normal lung sounds bilaterally. Absent: respiratory distress, wheezes, rales, rhonchi, stridor Cardiovascular Exam: Present: regular rate, normal rhythm, normal heart sounds. Absent: systolic murmur, diastolic murmur, rubs, gallop, clicks GI/Abdominal exam: Present: soft, normal bowel sounds. Absent: distended, tenderness, guarding, rebound, rigid Extremities exam: Present: normal inspection, full ROM, normal capillary refill. Absent: tenderness, pedal edema, joint swelling, calf tenderness Back exam: Present: normal inspection Neurological exam: Present: alert, oriented X3, CN II-XII intact Psychiatric exam: Present: normal affect, normal mood Skin exam: Present: warm, dry, intact, normal color. Absent: rash Course Vital Signs 10/04/19 10/04/19 18:55 19:58 Temperature 98.3 F Pulse Rate 77 20 L Respiratory 18 17 Rate Blood Pressure 125/84 139/96 O2 Sat by Pulse 98 Oximetry Procedures - Laceration Laceration #1 Consent Obtained: verbal consent Indication: laceration Site: scalp Size (cm): 25 (mm) Description: linear Depth: simple, single layer Number of Sutures: 2 (manpreet) Patient Tolerated Procedure: well, no complications Medical Decision Making - Medical Decision Making Upon arrival the patient was placed in room 16. There are history of physical exam is performed. Patient's laceration was repaired using 2 manpreet after was thoroughly cleansed with 500 mL of normal saline. Patient's tetanus is up-to-date. He is sent over for CT of his head and cervical spine demonstrates no acute fractures or intracranial bleeding. He was given Tylenol. Patient be discharged home at this time is follow up with his primary care physician. Instructed to return in 5 days to the manpreet removed. Return to the emergency room for any new or worsening symptoms. Patient was discharged home in stable condition Disposition Clinical Impression: Head injury, Scalp laceration Disposition: HOME SELF-CARE Condition: Stable Instructions (If sedation given, give patient instructions): Concussion (ED), Staple Care (ED) Additional Instructions: Please have your manpreet removed in 5 days. You may either go to your primary care office or return here. Return to the emergency room for any new or worsening symptoms Is patient prescribed a controlled substance at d/c from ED?: No Referrals: Sen Serra MD [Primary Care Provider] - 1-2 days Time of Disposition: 20:49
[2019-10-05 10:25] VITALS: BP 139/96; PULSE 20; RESP 17; TEMP 98.3
== END 2019-10-04 20:58 | disposition home or self-care (01) ==
LOC: EC 18:52
DX: S01.01XA Laceration without foreign body of scalp, initial encounter (principal); W20.8XXA Other cause of strike by thrown, projected or falling object, initial encounter
CPT/HCPCS: 12001; 70450; 72125; 99283